=== PATIENT | male | born 1960 | race Caucasian/White ===

== ENCOUNTER 2022-04-06 10:05 | Emergency (ER) | payer OTHER ==
[~2022-04-06 10:05] MED LIST: DOCUSATE SODIU250 MG PO; NORCO 5-325 TA1 EACH PO; PRAVACHOL40 MG PO; PROTONIX40 MG PO; SINGULAIR10 MG PO
[2022-04-06 10:29] LABS: HEMOGLOBIN 16.5 gm/dl (14.0-17.5); RED BLOOD COUNT 5.38 M/UL (4.20-5.50); WHITE BLOOD COUNT 8.5 K/UL (4.5-11.0)
[2022-04-06 10:51] LABS: BUN/CREATININE RATIO 16 (0-10)
[2022-04-06] MEDS ORDERED: FLOMAX0.4 MG PO (13:09)
[2022-04-06] MEDS ORDERED: ENULOSE10 GM/15 M PO (13:11)
== END 2022-04-06 13:28 | disposition home or self-care (01) ==
LOC: ER1 10:05
PROVIDERS: Emergency Medicine
DX: K59.00 Constipation, unspecified (principal); R33.9 Retention of urine, unspecified; F41.9 Anxiety disorder, unspecified; F17.200 Nicotine dependence, unspecified, uncomplicated; Z51.81 Encounter for therapeutic drug level monitoring
CPT/HCPCS: 51702; 71045; 80053; 81001; 83605; 83690; 84484; 85025; 85610; 85730; 86140; 93005; 96374; 96375; 99285; J1170; J2405; Q9967